=== PATIENT | female | born 1975 | race Caucasian/White ===

== ENCOUNTER 2019-03-20 11:29 | Observation (INO) ==
[2019-03-20] MEDS ORDERED: NORMAL SALINE 1,000 ML IV ONE (11:43)
[2019-03-20] MEDS ORDERED: KETOROLAC TROMETHAMINE 30 MG/ML VIAL IV ONE (11:43)
[2019-03-20] MEDS ORDERED: MORPHINE SULFATE 4 MG/ML SYRG IV ONE ×3 (11:53→16:21)
[2019-03-20] MEDS ORDERED: diphenhydrAMINE HCL 50 MG/ML VIAL IV ONE (11:53)
[2019-03-20] MEDS ORDERED: PROCHLORPERAZINE EDISYLATE 5 MG/ML VIAL IV ONE (11:54)
[2019-03-20 12:12] LABS: Urine Appearance Slightly Cloudy (CLEAR); Urine Bilirubin Negative (NEGATIVE); Urine Color Yellow; Urine Ketone Negative (NEGATIVE)
[2019-03-20 12:13] LABS: Urine Bacteria None Seen; Urine Blood Negative /ul (NEGATIVE); Urine Nitrite Negative (NEGATIVE); Urine Protein 30 mg/dL (NEGATIVE); Urine RBC None Seen /hpf (0-5); Urine Urobilinogen Normal (NORMAL); Urine WBC None Seen /hpf (0-5)
[2019-03-20 12:18] LABS: Hematocrit 36.4 % (37.0-47.0); Hemoglobin 12.1 gm/dL (12.5-16.0); Mean Cell Volume 90.5 fl (78-100); Mean Corpuscular Hemoglobin 30.1 pg (27-31); Mean Corpuscular Hgb Conc 33.2 g/dl (32-36); Mean Platelet Volume 9.5 fl (8-12.5); Neutrophil # 2.7 K/mm3 (1.3-6.0); Neutrophil % 62.2 % (42-75.0); Platelet Count 218 K/mm3 (150-450); Red Blood Count 4.02 M/mm3 (4.2-5.4); Red Cell Distribution Width 12.4 % (11.5-14.0); White Blood Count 4.3 K/mm3 (4.0-10.5)
[2019-03-20 12:36] LABS: Albumin * 3.8 gm/dl (3.4-5.0); Anion Gap 13.1 mmol/L (6.8-13.8); BUN/Creatinine Ratio 13.4 (9.0-21.6); Bilirubin, Total 0.4 mg/dL (0.0-1.1); Ca. Corrected For Albumin 8.1 mg/dL (8.4-10.2); Calcium * 8.3 mg/dL (7.9-10.9); Carbon Dioxide 24.1 mmol/L (24-32.6); Potassium 3.2 mmol/L (3.4-4.6); Total Protein 6.6 gm/dL (6.2-8.2)
[2019-03-20] MEDS ORDERED: DIATRIZOATE MEGLUMINE, SODIUM 30 ML BTL PO ONE (13:06)
--- NOTE | 2019-03-20 16:33 | ERNOTE ---
ER Female HPI Date of Service: 03/20/19 Stated Complaint: side pain possible kidney stone Presenting Symptoms: other - left side pain Time Seen by Provider: 03/20/19 11:39 Source: patient Exam Limitations: no limitations Immunizations: IMMUNIZATION HX Immunizations Up to Date Yes History of Influenza Vaccine No Hx Pneumococcal Vaccination No Allergies/Adverse Reactions: Allergies influenza virus vaccine, specific [Influenza Virus Vacc,Specific] Allergy (Intermediate, Verified 03/20/19 11:37) paralysis, hives, skin felt on fire Penicillins Allergy (Mild, Verified 03/20/19 11:37) Hives influenza virus vacc trivalent, split [From Fluzone] Allergy (Verified 03/20/19 11:37) codeine Adverse Reaction (Mild, Verified 03/20/19 11:37) n/v duloxetine HCl [From Cymbalta] Adverse Reaction (Mild, Verified 03/20/19 11:37) migraines escitalopram oxalate [From Lexapro] Adverse Reaction (Mild, Verified 03/20/19 11:37) teeth grinding paroxetine HCl [From Paxil] Adverse Reaction (Mild, Verified 03/20/19 11:37) rash Home Medications: HOME MEDICATIONS traMADol HCL [Conzip] 300 mg PO DAILY 01/25/15 [Last Taken 05/18/17] Pregabalin [Lyrica] 225 mg PO BID 05/18/17 [Last Taken 05/18/17] cholecalciferol (vitamin D3) 1,000 unit capsule 1,000 unit PO DAILY 03/10/18 [Last Taken Unknown] bupropion HCl 300 mg 24 hr tablet, extended release 300 mg PO BID #60 tab 12/14/18 [Last Taken Unknown] lamotrigine 150 mg tablet 150 mg PO BID #60 tab 12/14/18 [Last Taken Unknown] temazepam 15 mg capsule 15 mg PO HS PRN #60 cap 12/14/18 [Last Taken Unknown] zaleplon 10 mg capsule 10 mg PO HS PRN #30 cap 01/11/19 [Last Taken Unknown] LORazepam [Ativan] 1 mg PO TID PRN 03/20/19 [Last Taken Unknown] busPIRone HCL [Buspar] 10 mg PO BID 03/20/19 [Last Taken Unknown] - History of Present Illness Narrative: Patient presents to the ED with severe left side pain. This started at 0730 this morning at rest. Never had anything like this before. NO CP or SOB. Severe left flank and left low abdominal pain and LLQ pain. She thinks it is a kidney stone. Waxing and waning but constant and severe. Nausea. Nothing makes this better or worse. Timing: Present: constant Quality: Present: severe Onset Location: Present: LLQ Radiation: Present: left flank, other - left groin Activities at Onset: Present: none Modifying Factors - (Improves): Present: other - nothing Modifying Factors - (Worsens): Present: other - nothing Associated Symptoms: Absent: fever/chills, vomiting, urinary frequency Prior Treatment: Absent: recently seen Review of Systems - Review of Systems Constitutional: Absent: fever EYE: Present: no symptoms reported ENT: Absent: sore throat Respiratory: Absent: shortness of breath Cardiology: Absent: chest pain Gastrointestinal/Abdominal: Present: See HPI Genitourinary: Absent: dysuria All Other Systems: All systems neg except as marked Medical History (Last Reviewed 03/20/19 @ 16:29 by Harrison Izaguirre MD) Insomnia due to mental disorder (Chronic) Bipolar affective disorder, current episode depressed (Chronic) UTI (urinary tract infection) (Acute) Onset Date: Unknown Fibroid tumor (Acute) Onset Date: Unknown Ovarian cyst (Acute) Onset Date: Unknown Facial paresthesia (Acute) Onset Date: Unknown Navicular fracture of ankle (Acute) Onset Date: Unknown Polycystic kidney disease (Acute) Onset Date: 2014 Polycystic liver disease (Acute) Onset Date: Unknown Ankle pain Onset Date: 2015 rt Anxiety disorder Onset Date: 2012 Bipolar disorder Onset Date: 2012 Chronic renal disease Onset Date: 2015 Depressive disorder Onset Date: 2012 Fibroid, uterine Onset Date: 2016 Fibromyalgia Onset Date: 2012 Hernia, hiatal Onset Date: Unknown Hypothyroidism Onset Date: 2014 Insomnia Onset Date: 2013 Joint pain Onset Date: 2012 Subungual hematoma Onset Date: 2005 Vitamin D deficiency Onset Date: 2014 Surgical History: Surgical History (Last Reviewed 03/20/19 @ 16:29 by Harrison Izaguirre MD) History of bilateral mastectomy Hx of hysterectomy History of dilation and curettage Onset Date: Unknown SAB History of kidney surgery Onset Date: 2015. removal of over 200 cysts off right and left kidneys right kidney cyst removal 04-16-16 [place] History of laparoscopic appendectomy Onset Date: 2013 [place] History of thyroidectomy Onset Date: Unknown Family History: Family History (Last Reviewed 03/20/19 @ 16:29 by Harrison Izaguirre MD) Mother Chronic fatigue Insomnia Hypertension Father Cancer Grandfather Cancer Grandmother Cancer Grandmother Cancer Social History: (Last Reviewed 03/20/19 @ 16:29 by Harrison Izaguirre MD) Social History: Marital status: Service: No Tobacco: Smoking Status: Never smoker Alcohol: alcohol intake: current alcohol intake frequency: holiday/special occasion Dietary Habits: caffeine: No Physical Exam - Physical Exam General Appearance: Present: alert, other - distress d/t pain, appears very uncomfortable Head Exam: Present: normal inspection, no evidence of injury Eye Exam: Normal inspection: bilateral, PERRL: bilateral Ears, Nose, Throat: Present: normal ENT inspection Neck: Present: normal inspection Respiratory: Present: no respiratory distress, normal breath sounds, no accessory muscle use, lungs clear Cardiovascular/Chest: Present: regular rate, rhythm, normal peripheral pulses Gastrointestinal/Abdominal: Present: normal bowel sounds, nondistended, soft, other - LLQ tenderness Back Exam: Present: CVA tenderness (L) Extremity Exam: Present: normal inspection, normal range of motion Neurological Exam: Present: alert, no motor/sensory deficits Skin Exam: Present: normal color, warm/dry Progress - Results and Orders Patient's Lab Results:: I have reviewed the patient's lab results. - Vital Signs Patient's Vital Signs:: I have reviewed the patient's vital signs. Vital Signs: Vital Signs 03/20/19 11:35 03/20/19 12:42 03/20/19 15:00 Temperature 36.9 C Pulse Rate 91 65 62 Respiratory Rate 20 14 14 Blood Pressure 159/112 H 162/98 H 141/91 H O2 Sat by Pulse Oximetry 93 93 94 03/20/19 16:18 Temperature Pulse Rate 65 Respiratory Rate 18 Blood Pressure 168/105 H O2 Sat by Pulse Oximetry 95 - CT/Ultrasound CT/Ultrasound Narrative: I reviewed official radiology reports for US and CT - Progress/Reassessment Chief Complaint: Genitourinary Problem Progress Note-Subjective: 03/20/19 16:32 Patient has possible torsion. I immediately discussed the case with Dr Saucedo who will see the patient in the ED. Patient understands. Still having pain. Departure Clinical Impression: Continuous severe abdominal pain, Ovarian torsion - Departure Disposition: Still a patient Condition: Fair Referrals: Mer Flor MD [Primary Care Provider] -
[2019-03-20] MEDS ORDERED: LIDOCAINE HCL/EPINEPHRINE 30 ML VIAL IJ ONE ×2 (16:48→17:58)
--- NOTE | 2019-03-20 16:53 | ANES ---
Anesthesia Pre Procedure Eval Vitals/Labs: Last Vital Signs Temp 36.9 C 03/20/19 11:35 Pulse 65 03/20/19 16:18 Resp 18 03/20/19 16:18 BP 168/105 H 03/20/19 16:18 Pulse Ox 95 03/20/19 16:18 HOME MEDICATIONS traMADol HCL [Conzip] 300 mg PO DAILY 01/25/15 [Last Taken 05/18/17] Pregabalin [Lyrica] 225 mg PO BID 05/18/17 [Last Taken 05/18/17] cholecalciferol (vitamin D3) 1,000 unit capsule 1,000 unit PO DAILY 03/10/18 [Last Taken Unknown] bupropion HCl 300 mg 24 hr tablet, extended release 300 mg PO BID #60 tab 12/14/18 [Last Taken Unknown] lamotrigine 150 mg tablet 150 mg PO BID #60 tab 12/14/18 [Last Taken Unknown] temazepam 15 mg capsule 15 mg PO HS PRN #60 cap 12/14/18 [Last Taken Unknown] zaleplon 10 mg capsule 10 mg PO HS PRN #30 cap 01/11/19 [Last Taken Unknown] LORazepam [Ativan] 1 mg PO TID PRN 03/20/19 [Last Taken Unknown] busPIRone HCL [Buspar] 10 mg PO BID 03/20/19 [Last Taken Unknown] Allergies/Adverse Reactions: Allergies Allergy/AdvReac Type Severity Reaction Status Date / Time influenza virus vaccine, Allergy Intermediate paralysis, Verified 03/20/19 11:37 specific hives, [Influenza Virus skin felt Vacc,Specific] on fire Penicillins Allergy Mild Hives Verified 03/20/19 11:37 influenza virus vacc Allergy Verified 03/20/19 11:37 trivalent, split [From Fluzone] codeine AdvReac Mild n/v Verified 03/20/19 11:37 duloxetine HCl AdvReac Mild migraines Verified 03/20/19 11:37 [From Cymbalta] escitalopram oxalate AdvReac Mild teeth Verified 03/20/19 11:37 [From Lexapro] grinding paroxetine HCl [From Paxil] AdvReac Mild rash Verified 03/20/19 11:37 - Planned Procedure Planned Procedure: EXP Laparoscopy Medication List Reviewed:: Yes Allergies Verified: Yes Medical History (Last Reviewed 03/20/19 @ 16:52 by Wes Fragoso CRNA) Insomnia due to mental disorder (Chronic) Bipolar affective disorder, current episode depressed (Chronic) UTI (urinary tract infection) (Acute) Onset Date: Unknown Fibroid tumor (Acute) Onset Date: Unknown Ovarian cyst (Acute) Onset Date: Unknown Facial paresthesia (Acute) Onset Date: Unknown Navicular fracture of ankle (Acute) Onset Date: Polycystic kidney disease (Acute) Onset Date: 2014 Polycystic liver disease (Acute) Onset Date: Unknown Ankle pain Onset Date: 2016 rt Anxiety disorder Onset Date: 2012 Bipolar disorder Onset Date: 2012 Chronic renal disease Onset Date: 2014 Depressive disorder Onset Date: 2012 Fibroid, uterine Onset Date: 2015 Fibromyalgia Onset Date: 2012 Hernia, hiatal Onset Date: Hypothyroidism Onset Date: 2014 Insomnia Onset Date: 2012 Joint pain Onset Date: 2012 Subungual hematoma Onset Date: 2005 Vitamin D deficiency Onset Date: 2014 Surgical History (Last Reviewed 03/20/19 @ 16:49 by Shanika Saucedo MD) History of bilateral mastectomy Hx of hysterectomy History of dilation and curettage Onset Date: Unknown SAB History of kidney surgery Onset Date: 2015. removal of over 200 cysts off right and left kidneys right kidney cyst removal 04-16-16 [email or web address] History of laparoscopic appendectomy Onset Date: 2013 History of thyroidectomy Onset Date: Unknown Family History (Last Reviewed 03/20/19 @ 16:49 by Shanika Saucedo MD) Mother Chronic fatigue Insomnia Hypertension Father Cancer Grandfather Cancer Grandmother Cancer Grandmother Cancer - Family Anesthesia History Family History:: no untoward family reactions to anesthesia, no familial bleeding tendencies, no family history of clotting disorders, no family history of premature - Airway/Neck/Teeth Within Normal Limits:: Yes Teeth Condition: intact Mallampatti Score: 2 Thyromental (T-M) distance: > 6 cm Mandibulo Hyoid distance: > 3 cm - Respiratory Respiratory Physical: lungs clear Smoking Status: Never smoker Discussed smoking cessation including day of surgery: No Sleep Apnea currently treated: No Sleep Apnea by current assessment: No Discussed Risks/Treatment of TANVIR: No - Cardiovascular Tolerate Activity: Fair Heart Sounds: S1 & S2, Regular - Anesthesia Assessment and Plan ASA Class: PS, III, E Anesthesia Type Plan: General ET
--- NOTE | 2019-03-20 16:53 | HP ---
Chief Complaint - Chief Complaint Date of Service: 03/20/19 Time of Service: 16:47 Chief Complaint: Abdominal pain History of Present Illness: 43 year old with LLQ pain that began this morning at 0730 and it is progressively getting worse. The patient thought this was pain related to a kidney stone as she has a history of kidney diseases as well as kidney stones. The pain is very sharp. It is intermittent but when it is present it is very v jerad sharp. Pain medication has helped with the pain. Medical History (Last Reviewed 03/20/19 @ 16:49 by Shanika Saucedo MD) Insomnia due to mental disorder (Chronic) Bipolar affective disorder, current episode depressed (Chronic) UTI (urinary tract infection) (Acute) Onset Date: Unknown Fibroid tumor (Acute) Onset Date: Unknown Ovarian cyst (Acute) Onset Date: Unknown Facial paresthesia (Acute) Onset Date: Unknown Navicular fracture of ankle (Acute) Onset Date: Unknown Polycystic kidney disease (Acute) Onset Date: 2014 Polycystic liver disease (Acute) Onset Date: Unknown Ankle pain Onset Date: 2015 rt Anxiety disorder Onset Date: 2012 Bipolar disorder Onset Date: 2012 Chronic renal disease Onset Date: 2015 Depressive disorder Onset Date: 2012 Fibroid, uterine Onset Date: 2016 Fibromyalgia Onset Date: 2012 Hernia, hiatal Onset Date: Unknown Hypothyroidism Onset Date: 2014 Insomnia Onset Date: 2012 Joint pain Onset Date: 2012 Subungual hematoma Onset Date: 2005 Vitamin D deficiency Onset Date: 2014 Surgical History: Surgical History (Last Reviewed 03/20/19 @ 16:49 by Shanika Saucedo MD) History of bilateral mastectomy Hx of hysterectomy History of dilation and curettage Onset Date: Unknown SAB History of kidney surgery Onset Date: 2015. removal of over 200 cysts off right and left kidneys right kidney cyst removal 04-16-16 [email or web address] History of laparoscopic appendectomy Onset Date: 2013 [place] History of thyroidectomy Onset Date: Unknown Family History: Family History (Last Reviewed 03/20/19 @ 16:49 by Shanika Saucedo MD) Mother Chronic fatigue Insomnia Hypertension Father Cancer Grandfather Cancer Grandmother Cancer Grandmother Cancer Social History: (Last Reviewed 03/20/19 @ 16:49 by Shanika Saucedo MD) Social History: Marital status: Service: No Tobacco: Smoking Status: Never smoker Alcohol: alcohol intake: current alcohol intake frequency: holiday/special occasion Dietary Habits: caffeine: No Review Of Systems (GEN) - Review of Systems Generalized/Overall Review: Present: No Symptoms Reported EENTM: Present: No Symptoms Reported Respiratory: Present: No Symptoms Reported Cardiac: Present: No Symptoms Reported Abdominal: Present: Nausea, Vomiting, Abdominal Pain Genitourinary: Present: No Symptoms Reported Musculoskeletal: Present: No Symptoms Reported Neurological: Present: No Symptoms Reported Skin: Present: No Symptoms Reported Endocrine: Present: No Symptoms Reported Immunizations: IMMUNIZATION HX Immunizations Up to Date Yes History of Influenza Vaccine No Hx Pneumococcal Vaccination No Allergies/Adverse Reactions: Allergies Allergy/AdvReac Type Severity Reaction Status Date / Time influenza virus vaccine, Allergy Intermediate paralysis, Verified 03/20/19 11:37 specific hives, [Influenza Virus skin felt Vacc,Specific] on fire Penicillins Allergy Mild Hives Verified 03/20/19 11:37 influenza virus vacc Allergy Verified 03/20/19 11:37 trivalent, split [From Fluzone] codeine AdvReac Mild n/v Verified 03/20/19 11:37 duloxetine HCl AdvReac Mild migraines Verified 03/20/19 11:37 [From Cymbalta] escitalopram oxalate AdvReac Mild teeth Verified 03/20/19 11:37 [From Lexapro] grinding paroxetine HCl [From Paxil] AdvReac Mild rash Verified 03/20/19 11:37 Home Medications: HOME MEDICATIONS traMADol HCL [Conzip] 300 mg PO DAILY 01/25/15 [Last Taken 05/18/17] Pregabalin [Lyrica] 225 mg PO BID 05/18/17 [Last Taken 05/18/17] cholecalciferol (vitamin D3) 1,000 unit capsule 1,000 unit PO DAILY 03/10/18 [Last Taken Unknown] bupropion HCl 300 mg 24 hr tablet, extended release 300 mg PO BID #60 tab 12/14/18 [Last Taken Unknown] lamotrigine 150 mg tablet 150 mg PO BID #60 tab 12/14/18 [Last Taken Unknown] temazepam 15 mg capsule 15 mg PO HS PRN #60 cap 12/14/18 [Last Taken Unknown] zaleplon 10 mg capsule 10 mg PO HS PRN #30 cap 01/11/19 [Last Taken Unknown] LORazepam [Ativan] 1 mg PO TID PRN 03/20/19 [Last Taken Unknown] busPIRone HCL [Buspar] 10 mg PO BID 03/20/19 [Last Taken Unknown] Exam - Exam Vital Signs: Vital Signs - Last Taken Temp 36.9 C 03/20/19 11:35 Pulse 65 03/20/19 16:18 Resp 18 03/20/19 16:18 BP 168/105 H 03/20/19 16:18 Pulse Ox 95 03/20/19 16:18 Constitutional: Present: Alert, Oriented x3, Cooperative, Mild distress ENT Exam: Present: hearing grossly normal Neck: Present: supple, normal inspection Back Exam: Present: normal inspection, no CVA tenderness Respiratory: Present: lungs clear, normal breath sounds Cardiovascular/Chest: Present: regular rate, rhythm, no murmur Abdomen: Present: Normal bowel sounds, soft, nondistended, no rebound tenderness, tender Extremity: Present: non-tender, no calf tenderness Skin Exam: Present: normal color, warm/dry, no cyanosis Appearance: Present: appropriate appearance Eye contact: Present: cooperative Thoughts: Present: normal thought pattern Diagnostic Studies: Abnormal Lab Results 03/20/19 03/20/19 03/20/19 Range/Units 11:47 12:05 12:05 RBC 4.02 L (4.2-5.4) M/mm3 Hgb 12.1 L (12.5-16.0) gm/dL Hct 36.4 L (37.0-47.0) % Lymphocytes # 1.27 L (1.5-3.5) k/mm3 Potassium 3.2 L (3.4-4.6) mmol/L Est GFR (Non-Af Amer) 45 L (60-130) mL/min Calcium Adj for Albumin 8.1 L (8.4-10.2) mg/dL Urine Protein 30 H (NEGATIVE) mg/dL Ur Epithelial Cells 5-10 H (0-5) /hpf Laboratory Results WBC 4.3 K/mm3 (4.0-10.5) 03/20/19 12:05 RBC 4.02 M/mm3 (4.2-5.4) L 03/20/19 12:05 Hgb 12.1 gm/dL (12.5-16.0) L 03/20/19 12:05 Hct 36.4 % (37.0-47.0) L 03/20/19 12:05 MCV 90.5 fl (78-100) 03/20/19 12:05 MCH 30.1 pg (27-31) 03/20/19 12:05 MCHC 33.2 g/dl (32-36) 03/20/19 12:05 RDW 12.4 % (11.5-14.0) 03/20/19 12:05 Plt Count 218 K/mm3 (150-450) 03/20/19 12:05 MPV 9.5 fl (8-12.5) 03/20/19 12:05 Immature Gran % (Auto) 0.20 % (0.001-0.429) 03/20/19 12:05 Immature Gran # (Auto) 0.01 K/mm3 (0.000-0.0310) 03/20/19 12:05 Neutrophils % 62.2 % (42-75.0) 03/20/19 12:05 Lymphocytes % 29.5 % (20-51) 03/20/19 12:05 Monocytes % 7.4 % (0.0-9) 03/20/19 12:05 Eosinophils % 0.0 % (0.0-3.0) 03/20/19 12:05 Basophils % 0.7 % (0.0-1.0) 03/20/19 12:05 Nucleated RBC % 0.0 k/mm3 (0-1) 03/20/19 12:05 Neutrophils # 2.7 K/mm3 (1.3-6.0) 03/20/19 12:05 Lymphocytes # 1.27 k/mm3 (1.5-3.5) L 03/20/19 12:05 Monocytes # 0.3 k/mm3 (0.0-1.0) 03/20/19 12:05 Eosinophils # 0.0 k/mm3 (0.0-0.7) 03/20/19 12:05 Absolute Basophils 0.0 k/mm3 (0.0-0.1) 03/20/19 12:05 Sodium 138 mmol/L (132-142) 03/20/19 12:05 Plasma Sodium 138 mmol/L (130-142) 03/20/19 12:05 Potassium 3.2 mmol/L (3.4-4.6) L 03/20/19 12:05 Chloride 104 mmol/L (97-106) 03/20/19 12:05 Carbon Dioxide 24.1 mmol/L (24-32.6) 03/20/19 12:05 Anion Gap 13.1 mmol/L (6.8-13.8) 03/20/19 12:05 BUN 18 mg/dL (3-23) 03/20/19 12:05 Creatinine 1.34 mg/dL (0.4-1.4) 03/20/19 12:05 Est GFR (Non-Af Amer) 45 mL/min (60-130) L 03/20/19 12:05 BUN/Creatinine Ratio 13.4 (9.0-21.6) 03/20/19 12:05 Random Glucose 93 mg/dL (70-110) 03/20/19 12:05 Calcium 8.3 mg/dL (7.9-10.9) 03/20/19 12:05 Calcium Adj for Albumin 8.1 mg/dL (8.4-10.2) L 03/20/19 12:05 Total Bilirubin 0.4 mg/dL (0.0-1.1) 03/20/19 12:05 AST 19 U/L (0-48) 03/20/19 12:05 ALT 30 U/L (19-67) 03/20/19 12:05 Alkaline Phosphatase 53 U/L (50-170) 03/20/19 12:05 Total Protein 6.6 gm/dL (6.2-8.2) 03/20/19 12:05 Albumin 3.8 gm/dl (3.4-5.0) 03/20/19 12:05 Serum HCG, Qual Negative (NEGATIVE) 03/20/19 12:05 Urine Color Yellow 03/20/19 11:47 Urine Appearance Slightly cloudy (CLEAR) 03/20/19 11:47 Urine pH 6.0 pH (5.0-7.0) 03/20/19 11:47 Ur Specific [place] 1.020 SP.GR. (1.005-1.010) 03/20/19 11:47 Urine Protein 30 mg/dL (NEGATIVE) H 03/20/19 11:47 Urine Glucose (UA) Negative mg/dL (NEGATIVE) 03/20/19 11:47 Urine Ketones Negative mg/dL (NEGATIVE) 03/20/19 11:47 Urine Blood Negative /ul (NEGATIVE) 03/20/19 11:47 Urine Nitrate Negative (NEGATIVE) 03/20/19 11:47 Urine Bilirubin Negative mg/dl (NEGATIVE) 03/20/19 11:47 Prot Sulfosalicylic Acd 1+ mg/dL (0) 03/20/19 11:47 Urine Urobilinogen Normal EU/dl (NORMAL) 03/20/19 11:47 Ur Leukocyte Esterase Negative /ul (NEGATIVE) 03/20/19 11:47 Urine RBC None seen /hpf (0-5) 03/20/19 11:47 Urine WBC None seen /hpf (0-5) 03/20/19 11:47 Ur Epithelial Cells 5-10 /hpf (0-5) H 03/20/19 11:47 Urine Bacteria None seen (NONE) 03/20/19 11:47 Urine Culture Comments No culture indicated 03/20/19 11:47 Assessment/Plan - Narrative Narrative: 43 year old with left ovarian torsion associated with a left hemorrhagic cyst. Of note, the patient has had a hysterectomy for AUB and leiomyomas. I counseled the patient extensively regarding her options. I discussed proceeding with detorsion and ovarian cystectomy versus oophorectomy. The patient understands that if a cystectomy is undertaken the cyst and ovarian torsion could recur. She would like to avoid this and she desires oophorectomy. Proceed with laparoscopic left oophorectomy. All risks, benefits, and alternatives of the procedure were explained to the patient and the patient consented to the procedure. Prophylactic antibiotics are not indicated.
[2019-03-20] MEDS ORDERED: fentaNYL CITRATE/PF 50 MCG/ML AMPUL ONE (16:58)
[2019-03-20] MEDS ORDERED: ONDANSETRON HCL/PF 2 MG/ML VIAL ONE (16:58)
[2019-03-20] MEDS ORDERED: NEOSTIGMINE METHYLSULFATE 1 MG/ML VIAL ONE (16:58)
[2019-03-20] MEDS ORDERED: SUCCINYLCHOLINE CHLORIDE 20 MG/ML VIAL ONE (16:59)
[2019-03-20] MEDS ORDERED: PROPOFOL VIAL IV ONE (16:59)
[2019-03-20] MEDS ORDERED: LIDOCAINE HCL 20 ML VIAL ONE (16:59)
[2019-03-20] MEDS ORDERED: ROCURONIUM BROMIDE 10 MG/ML VIAL ONE (16:59)
[2019-03-20] MEDS ORDERED: GLYCOPYRROLATE 0.2 MG/ML VIAL ONE (16:59)
[2019-03-20] MEDS ORDERED: HYDROmorphone HCL 2 MG/ML VIAL IV PRN (17:20)
[2019-03-20] MEDS ORDERED: PROCHLORPERAZINE EDISYLATE 5 MG/ML VIAL IV PRN (17:22)
[2019-03-20] MEDS ORDERED: diphenhydrAMINE HCL 50 MG/ML VIAL IV PRN (17:22)
[2019-03-20] MEDS: RINGER'S SOLUTION,LACTATED 1,000 ML IV PRN ×2 (17:30→21:02)
[2019-03-20] MEDS ORDERED: SCOPOLAMINE HYDROBROMIDE 1.5 MG PATC TD ONE (17:37)
--- NOTE | 2019-03-20 18:29 | OR ---
Operative Report - Dictated Report Narrative: Preoperative diagnosis: left ovarian torsion Postoperative diagnosis: same and extensive intra-abdominal adhesions Procedure: diagnostic laparoscopy Surgeon: Dr. Saucedo Anesthesia: OWEN Description of the procedure: The patient was taken to the operating room where general anesthesia was induced without difficulty. She was then prepped and draped in the supine position. An infraumbilical incision was made. The abdomen was attempted to be entered but instead a tunnel was noted. For this reason, after emptying the patient's abdomen, the abdomen was entered in the LUQ quadrant. The abdomen was insufflated with CO2 gas. An additional port was placed in the LLQ with good visualization of the bowel. 5mm ports were used. The omentum was adherent to the anterior abdominal wall. The bowel was adherent throughout and the ovaries could not be visualized. I did not feel comfortable performing this enterolysis and thus the procedure was aborted. The skin incisions were closed with 4-0 vicryl. Ten mL of lidocaine with epinephrine was injected at the incisions for analgesia. All sponge, lap, and needle counts were correct. The patient tolerated the procedure well. She was transferred to the recovery room in stable condition. EBL: minimal Specimens: none Complications: none
--- NOTE | 2019-03-20 18:41 | ANES ---
Post Anesthesia Discharge - Transfer of Care Transfer of Care handoff given to nurse: Yes - Discharge from PACU Discharge from PACU when meets criteria: Yes - Discharge to ASU Discharge to ASU-no complications/pt stable: Yes
--- NOTE | 2019-03-20 18:47 | ANES ---
Post Anesthesia Assessment - Vital Signs Vitals: Last Vital Signs Temp 36.6 C 03/20/19 18:30 Pulse 52 L 03/20/19 18:45 Resp 16 03/20/19 18:45 BP 129/78 03/20/19 18:45 Pulse Ox 98 03/20/19 18:45 Airway Patency: Normal - Mental Status Level Of Consciousness: Awake - Pain Level Pain Score: 0 - N/V Assessment Nausea/Vomiting Presence: Nauseated Dehydration:: No
[2019-03-20] MEDS ORDERED: RINGER'S SOLUTION,LACTATED 1,000 ML IV PRN (19:15)
[2019-03-20] MEDS ORDERED: IBUPROFEN 800 MG TABLET PO PRN ×2 (19:15→20:26)
[2019-03-20] MEDS ORDERED: HYDROmorphone HCL 1 MG/ML DISP.SYRIN IV PRN (19:15)
[2019-03-20] MEDS ORDERED: ACETAMINOPHEN 500 MG TABLET PO PRN (19:19)
--- NOTE | 2019-03-20 19:19 | DS ---
Transfer Discharge Summary - Diagnosis(s)/Problems (1) Continuous severe abdominal pain Problem: Acute (2) Ovarian torsion Problem: Acute - Course Description of Stay: The patient presented to the ED. She was taken for a planned laparoscopy, left salpingo-oophorectomy. A diagnostic laparoscopy was performed as the patient had severe intra-abdominal adhesions. For this reason, she was transferred to a higher level of care. Procedures Performed: see notes below Procedures: diagnostic laparoscopy - Results and Findings Results and Findings: Laboratory Results - last 24 hr 03/20/19 03/20/19 03/20/19 11:47 12:05 12:05 WBC 4.3 RBC 4.02 L Hgb 12.1 L Hct 36.4 L MCV 90.5 MCH 30.1 MCHC 33.2 RDW 12.4 Plt Count 218 MPV 9.5 Immature Gran % (Auto) 0.20 Immature Gran # (Auto) 0.01 Neutrophils % 62.2 Lymphocytes % 29.5 Monocytes % 7.4 Eosinophils % 0.0 Basophils % 0.7 Nucleated RBC % 0.0 Neutrophils # 2.7 Lymphocytes # 1.27 L Monocytes # 0.3 Eosinophils # 0.0 Absolute Basophils 0.0 Sodium 138 Plasma Sodium 138 Potassium 3.2 L Chloride 104 Carbon Dioxide 24.1 Anion Gap 13.1 BUN 18 Creatinine 1.34 Est GFR (Non-Af Amer) 45 L BUN/Creatinine Ratio 13.4 Random Glucose 93 Calcium 8.3 Calcium Adj for Albumin 8.1 L Total Bilirubin 0.4 AST 19 ALT 30 Alkaline Phosphatase 53 Total Protein 6.6 Albumin 3.8 Serum HCG, Qual Urine Color Yellow Urine Appearance Slightly cloudy Urine pH 6.0 Ur Specific [place] 1.020 Urine Protein 30 H Urine Glucose (UA) Negative Urine Ketones Negative Urine Blood Negative Urine Nitrate Negative Urine Bilirubin Negative Prot Sulfosalicylic Acd 1+ Urine Urobilinogen Normal Ur Leukocyte Esterase Negative Urine RBC None seen Urine WBC None seen Ur Epithelial Cells 5-10 H Urine Bacteria None seen Urine Culture Comments No culture indicated 03/20/19 12:05 WBC RBC Hgb Hct MCV MCH MCHC RDW Plt Count MPV Immature Gran % (Auto) Immature Gran # (Auto) Neutrophils % Lymphocytes % Monocytes % Eosinophils % Basophils % Nucleated RBC % Neutrophils # Lymphocytes # Monocytes # Eosinophils # Absolute Basophils Sodium Plasma Sodium Potassium Chloride Carbon Dioxide Anion Gap BUN Creatinine Est GFR (Non-Af Amer) BUN/Creatinine Ratio Random Glucose Calcium Calcium Adj for Albumin Total Bilirubin AST ALT Alkaline Phosphatase Total Protein Albumin Serum HCG, Qual Negative Urine Color Urine Appearance Urine pH Ur Specific [place] Urine Protein Urine Glucose (UA) Urine Ketones Urine Blood Urine Nitrate Urine Bilirubin Prot Sulfosalicylic Acd Urine Urobilinogen Ur Leukocyte Esterase Urine RBC Urine WBC Ur Epithelial Cells Urine Bacteria Urine Culture Comments - Medications Medications: Active Medications Lactated Ringer's (Lactated Ringers) 1,000 mls @ 125 mls/hr IV .Q8H PRN PRN Reason: HYDRATION Stop: 04/19/19 17:31 Last Admin: 03/20/19 17:30 Dose: 125 mls/hr Documented by: Discontinued Medications Diphenhydramine HCl (Benadryl) 25 mg IV ONCE ONE Stop: 03/20/19 11:54 Last Admin: 03/20/19 11:58 Dose: 25 mg Documented by: Sodium Chloride (Sodium Chloride 0.9%) 1,000 mls @ 999 mls/hr IV .Q1H1M ONE Stop: 03/20/19 12:43 Last Infusion: 03/20/19 12:54 Dose: Infused Documented by: Ketorolac Tromethamine (Toradol) 30 mg IV ONCE ONE Stop: 03/20/19 11:44 Last Admin: 03/20/19 11:51 Dose: 30 mg Documented by: Lidocaine/Epinephrine (Xylocaine 1%/Epi [id number]) 10 ml IJ ONCE ONE Stop: 03/20/19 17:59 Last Admin: 03/20/19 17:58 Dose: 10 ml Documented by: Morphine Sulfate (Morphine Sulfate) 4 mg IV ONCE ONE Stop: 03/20/19 11:54 Last Admin: 03/20/19 14:01 Dose: Not Given Documented by: Morphine Sulfate (Morphine Sulfate) 4 mg IV ONCE ONE Stop: 03/20/19 14:04 Last Admin: 03/20/19 14:14 Dose: 4 mg Documented by: Morphine Sulfate (Morphine Sulfate) 4 mg IV ONCE ONE Stop: 03/20/19 16:22 Last Admin: 03/20/19 16:34 Dose: 4 mg Documented by: Prochlorperazine Edisylate (Compazine) 10 mg IV ONCE ONE Stop: 03/20/19 11:55 Last Admin: 03/20/19 12:00 Dose: 10 mg Documented by: Scopolamine (Transderm-Scop) 1.5 mg TD ONCE ONE Stop: 03/20/19 17:38 Last Admin: 03/20/19 17:37 Dose: 1.5 mg Documented by: - Disposition Disposition: Intermediate Care Facility [facility] Condition: Good
[2019-03-20 23:02] VITALS: BP 116/63
== END 2019-03-20 22:45 | disposition short-term general hospital (02) ==
LOC: ER 11:29 → AMB 17:26 → MS 17:26 → AMB 17:28
PROVIDERS: ADMIT Obstetrics & Gynecology; ATTEND Obstetrics & Gynecology
CPT/HCPCS: 36415; 74176; 76830; 76856; 80053; 81001; 84703; 85025; 96374; 99285; J2405